=== PATIENT | male | born 1945 | race Caucasian/White ===

== ENCOUNTER 2022-03-03 10:34 | Inpatient (IN) ==
[2022-03-03] MEDS ORDERED: CEFEPIME 2,000 MG/20 ML VIAL IV STA (11:12)
[2022-03-03] MEDS ORDERED: SODIUM CHLORIDE 0.9% 1000ML 1,000 ML IV SCH (11:15)
--- NOTE | 2022-03-03 11:21 | Emergency Department Note ---
Impression & Plan Weakness, Babesiosis, Anemia, Thrombocytopenia, Elevated liver enzymes ED Provider Note NAME: SINDY ADKINS Jr AGE: 76 SEX: M : 1945 ARRIVES VIA: Walk-In INFORMANT: [Patient][family] ED PROVIDER(S): [Rufino Fraga MD] CHIEF COMPLAINT: Respiratory problems HISTORY OF PRESENT ILLNESS: The patient is a 76-year-old male who is visiting the area for 04 March hol. The patient on the , about 10 days ago, began to get tired and have no appetite. He was nauseated with a slight nonproductive cough. He has had some chills and sweats and has been dizzy. There has been some loose stool for about 4 days. The patient went to urgent care and was told that he had a walking pneumonia. He was given doxycycline. He has been on this medication for 3 days. Patient still has no energy and feels short of breath with exertion. He still is running a temperature. He is here with his family, they are concerned that something else is going on. Of note, the patient [place] a lot of time in the [place], he has had tick bites. He states he did take an at home COVID test when he started getting ill, this was negative. REVIEW OF SYSTEMS: See HPI for pertinent positives and negatives. A total of ten systems were reviewed and were otherwise negative. PMHx/PSHx: See Below SOCIAL HISTORY: See Below. PHYSICAL EXAM: GENERAL: Patient is in no acute distress. HEENT: No acute trauma, normocephalic atraumatic, mucous membranes moist, no nasal congestion, no scleral icterus. NECK: No stridor, no adenopathy, no meningismus, trachea is midline. LUNGS: A few scattered crackles heard bilaterally, no wheezing, no respiratory distress. HEART: 2/6 systolic murmur, irregular rhythm, normal rate. ABDOMEN: Soft, nontender, bowel sounds positive, no peritonitis. EXTREMITIES: No cyanosis or edema, full range of motion of all the joints without pain or difficulty, no signs for acute trauma. NEUROLOGIC: Oriented x 3, no acute motor or sensory deficits, no focal weakness. SKIN: No rash, no jaundice, no diaphoresis. DIFFERENTIAL DIAGNOSIS: Sepsis, UTI, pneumonia, Lyme disease, anaplasmosis, babesiosis, COVID-19, influenza, metabolic abnormality, electrolyte abnormalities, cardiac sources, cellulitis, bacteremia, intracerebral event, toxicologic etiology, neurologic event, as well as other pathologies. EMERGENCY DEPARTMENT COURSE/PROCEDURES: ECG: Indication was weakness. The ECG shows what appears to be a sinus rhythm with frequent PACs. The rate is 73. There is no ST elevation, no PVCs. The QTc is 497. No previous ECGs available for comparison. Continuous Cardiac Monitoring: An order was placed for continuous cardiac monitoring. The monitor shows a rate of 82 with sinus rhythm with PACs. MEDICAL DECISION MAKING: There is a lower white blood cell count with a value of 1.3. The patient was anemic with a hemoglobin of 8.1. Platelet count was low at 14. Patient was technically neutropenic by differential. INR was 1.3, mildly elevated. Sodium was low at 130. No renal failure. Lactic acid level was not elevated making se jennifer sepsis less likely. Magnesium was low at 1.6. There were some subtle liver enzyme elevations. Procalcitonin level was elevated. Chest x-ray did not show pneumonia or CHF. ECG shows a sinus rhythm, no obvious acute ischemia. Cardiac enzyme testing x1 was slightly elevated, likely consistent with mismatch although, cardiac injury is a possibility. Of note, the patient did not have any chest pain. Babesiosis smear was positive, anaplasmosis smear was negative. Lyme disease testing was negative. COVID, influenza and RSV test were negative. Patient has babesiosis. This explains his laboratory findings and his complaints. He does require a hospital stay. He was given IV saline, 1.5 L. He was given IV magnesium, IV cefepime. He was given oral atovaquone and IV Zithromax. The patient is aware of his findings, his family is aware. He understands the reason for a hospital stay. I did speak with case management, the on-call hospitalist was consulted. Past Med/Surg History Medical History Afib CAD (coronary artery disease) Cigarette smoker Elevated PSA HLD (hyperlipidemia) HTN (hypertension) Surgical History (Updated 03/03/22 @ 14:16 by ANIL Armenta) H/O heart artery stent Family History (Updated 03/03/22 @ 14:16 by ANIL Armenta) Other Family history non-contributory Social History Smoking Status: Former smoker Tobacco Type: Cigarettes Feels Safe at Home: Yes Home Meds Home Medications Medication Instructions Recorded Confirmed CoQ-10 1 tab PO DAILY 03/03/22 03/03/22 Xarelto 10 mg PO DAILY 03/03/22 03/03/22 aspirin 81 mg PO DAILY 03/03/22 03/03/22 lisinopril 5 mg PO DAILY 03/03/22 03/03/22 omeprazole 20 mg PO DAILY 03/03/22 03/03/22 rosuvastatin 20 mg PO DAILY 03/03/22 03/03/22 Results & Data (ED) Vital Signs Vital Signs - 24 hr 03/03/22 10:42 03/03/22 10:58 03/03/22 11:00 Temperature 36.6 C Temperature Source Skin Pulse Rate 82 74 74 Pulse Rate from SpO2 Sensor 74 59 L Pulse Rhythm Regular Pulse Strength Normal Respiratory Rate 20 15 17 Respiratory Effort / Characteristics Non-Labored Spontaneous Respiratory Depth Normal Respiratory Pattern Regular Blood Pressure 95/62 L Blood Pressure Mean 73 Pulse Oximetry 98 98 98 Oxygen Delivery Method Room Air Room Air Room Air Sepsis Recent Fever Within 48 Hours Yes Sepsis New/Unexplained Change in Mental Status N/A Sepsis Action Taken by Nursing No Action Required 03/03/22 11:10 03/03/22 11:20 03/03/22 11:30 Temperature Temperature Source Pulse Rate 77 70 68 Pulse Rate from SpO2 Sensor 75 70 61 Pulse Rhythm Pulse Strength Respiratory Rate 17 19 22 Respiratory Effort / Characteristics Respiratory Depth Respiratory Pattern Blood Pressure Blood Pressure Mean Pulse Oximetry 97 97 94 Oxygen Delivery Method Room Air Room Air Room Air Sepsis Recent Fever Within 48 Hours Sepsis New/Unexplained Change in Mental Status Sepsis Action Taken by Nursing 03/03/22 11:31 03/03/22 11:40 03/03/22 11:50 Temperature Temperature Source Pulse Rate 65 73 Pulse Rate from SpO2 Sensor 61 69 Pulse Rhythm Pulse Strength Respiratory Rate 22 20 Respiratory Effort / Characteristics Non-Labored Spontaneous Respiratory Depth Respiratory Pattern Blood Pressure Blood Pressure Mean Pulse Oximetry 97 97 Oxygen Delivery Method Room Air Room Air Room Air Sepsis Recent Fever Within 48 Hours Sepsis New/Unexplained Change in Mental Status Sepsis Action Taken by Nursing 03/03/22 12:00 03/03/22 12:10 03/03/22 12:20 Temperature Temperature Source Pulse Rate 71 65 69 Pulse Rate from SpO2 Sensor 71 63 68 Pulse Rhythm Pulse Strength Respiratory Rate 22 16 18 Respiratory Effort / Characteristics Respiratory Depth Respiratory Pattern Blood Pressure Blood Pressure Mean Pulse Oximetry 96 99 98 Oxygen Delivery Method Room Air Room Air Room Air Sepsis Recent Fever Within 48 Hours Sepsis New/Unexplained Change in Mental Status Sepsis Action Taken by Nursing 03/03/22 12:30 03/03/22 12:40 03/03/22 12:50 Temperature Temperature Source Pulse Rate 67 68 76 Pulse Rate from SpO2 Sensor 64 70 68 Pulse Rhythm Pulse Strength Respiratory Rate 16 21 18 Respiratory Effort / Characteristics Respiratory Depth Respiratory Pattern Blood Pressure Blood Pressure Mean Pulse Oximetry 97 94 98 Oxygen Delivery Method Room Air Room Air Room Air Sepsis Recent Fever Within 48 Hours Sepsis New/Unexplained Change in Mental Status Sepsis Action Taken by Nursing 03/03/22 13:00 03/03/22 13:10 03/03/22 13:20 Temperature Temperature Source Pulse Rate 66 66 63 Pulse Rate from SpO2 Sensor 68 64 64 Pulse Rhythm Pulse Strength Respiratory Rate 20 19 15 Respiratory Effort / Characteristics Respiratory Depth Respiratory Pattern Blood Pressure Blood Pressure Mean Pulse Oximetry 99 99 99 Oxygen Delivery Method Room Air Room Air Room Air Sepsis Recent Fever Within 48 Hours Sepsis New/Unexplained Change in Mental Status Sepsis Action Taken by Nursing 03/03/22 13:29 03/03/22 13:30 03/03/22 13:50 Temperature Temperature Source Pulse Rate 71 68 Pulse Rate from SpO2 Sensor 72 Pulse Rhythm Pulse Strength Respiratory Rate 24 17 Respiratory Effort / Characteristics Respiratory Depth Respiratory Pattern Blood Pressure 132/73 116/70 Blood Pressure Mean 92 85 Pulse Oximetry 100 Oxygen Delivery Method Room Air Room Air Room Air Sepsis Recent Fever Within 48 Hours Sepsis New/Unexplained Change in Mental Status Sepsis Action Taken by Nursing 03/03/22 14:00 03/03/22 14:10 03/03/22 14:20 Temperature Temperature Source Pulse Rate 68 63 68 Pulse Rate from SpO2 Sensor 60 65 64 Pulse Rhythm Pulse Strength Respiratory Rate 16 18 16 Respiratory Effort / Characteristics Respiratory Depth Respiratory Pattern Blood Pressure 116/61 Blood Pressure Mean 79 Pulse Oximetry 98 100 99 Oxygen Delivery Method Room Air Room Air Room Air Sepsis Recent Fever Within 48 Hours Sepsis New/Unexplained Change in Mental Status Sepsis Action Taken by Nursing 03/03/22 14:30 03/03/22 14:40 03/03/22 14:59 Temperature Temperature Source Pulse Rate 67 63 113 H Pulse Rate from SpO2 Sensor Pulse Rhythm Pulse Strength Respiratory Rate 14 16 Respiratory Effort / Characteristics Respiratory Depth Respiratory Pattern Blood Pressure 108/56 L Blood Pressure Mean 73 Pulse Oximetry Oxygen Delivery Method Room Air Room Air Room Air Sepsis Recent Fever Within 48 Hours Sepsis New/Unexplained Change in Mental Status Sepsis Action Taken by Nursing 03/03/22 15:00 03/03/22 15:02 03/03/22 15:10 Temperature Temperature Source Pulse Rate 80 80 68 Pulse Rate from SpO2 Sensor Pulse Rhythm Pulse Strength Respiratory Rate 18 16 17 Respiratory Effort / Characteristics Respiratory Depth Respiratory Pattern Blood Pressure 123/69 Blood Pressure Mean 87 Pulse Oximetry Oxygen Delivery Method Room Air Room Air Room Air Sepsis Recent Fever Within 48 Hours Sepsis New/Unexplained Change in Mental Status Sepsis Action Taken by Alf Medications Current Medication List: was personally reviewed by me Laboratory Data Attestation: I reviewed the patient's lab results. Result diagrams: 03/03/22 11:25 03/03/22 11:25 Lab Results 03/03/22 03/03/22 03/03/22 Range/Units 11:25 11:25 11:25 WBC 1.30 L (4.8-10.8) K/uL RBC 2.53 L (4.7-6.1) M/uL Hgb 8.1 L (14.0-18.0) g/dL Hct 23.5 L (42-52) % MCV 92.9 (80-100) fL MCH 32.0 (25-34) pg MCHC 34.5 (32-36) g/dL RDW Std Deviation 50.3 H (36.4-46.3) fL RDW Coeff of Justine 14.7 H (11.5-14.5) % Plt Count 14 L* (130-400) K/uL MPV 12.6 H (7.4-10.4) fL Neutrophils % (Manual) 65.5 % Lymphocytes % (Manual) 27.7 % Monocytes % (Manual) 6.8 % Neutrophils # (Manual) 0.85 L (1.4-6.5) K/uL Total Absolute Neuts 0.85 L* (1.4-6.5) K/uL Lymphocytes # (Manual) 0.36 L (1.2-3.4) K/uL Total Abs Lymphocytes 0.36 L (1.2-3.4) K/uL Monocytes # (Manual) 0.09 L (0.11-0.59) K/uL Platelet Estimate SIGNIFIC DECREASED (Normal) Ovalocytes 1+ Peripher Smr Path Cons ESR (0-20) mm/hr PT 13.9 H (9.0-12.0) Seconds INR 1.3 H (0.9-1.1) APTT 38.1 H (21.0-31.0) Seconds PTT Ratio 1.4 Sodium (136-145) mmol/L Potassium (3.5-5.1) mmol/L Chloride (98-107) mmol/L Carbon Dioxide (21-32) mmol/L Anion Gap (3-11) BUN (6-23) mg/dl Creatinine (0.6-1.4) mg/dl Est Cr Clr Drug Dosing ml/min Est GFR ( Amer) ml/min Est GFR (Non-Af Amer) ml/min BUN/Creatinine Ratio (10-20) Glucose (70-99(Fasting)) mg/dl Lactate (0.4-2.0) mmol/L Calcium (8.5-10.1) mg/dl Magnesium (1.7-2.4) mg/dl Total Bilirubin (0.2-1.0) mg/dl AST (13-39) U/L ALT (7-52) U/L Alkaline Phosphatase (34-104) U/L Lactate Dehydrogenase (86-244) U/L Troponin I High Sens (0-20) pg/ml Total Protein (6.0-8.3) gm/dl Albumin (3.4-5.0) gm/dl Globulin (2.5-4.0) gm/dl Albumin/Globulin Ratio (0.9-2) Procalcitonin (0-0.5) ng/ml Anaplasma Smear Cancelled See Comment Babesia Smear Cancelled See Comment A Lyme Disease IgG Ab (Negative) Lyme Disease IgM Ab (Negative) SARS-CoV-2 (PCR) (Negative) Influenza Type A (PCR) (Neg) Influenza Type B (PCR) (Neg) RSV (RT-PCR) (Neg) 03/03/22 03/03/22 03/03/22 Range/Units 11:25 11:25 11:25 WBC (4.8-10.8) K/uL RBC (4.7-6.1) M/uL Hgb (14.0-18.0) g/dL Hct (42-52) % MCV (80-100) fL MCH (25-34) pg MCHC (32-36) g/dL RDW Std Deviation (36.4-46.3) fL RDW Coeff of Justine (11.5-14.5) % Plt Count (130-400) K/uL MPV (7.4-10.4) fL Neutrophils % (Manual) % Lymphocytes % (Manual) % Monocytes % (Manual) % Neutrophils # (Manual) (1.4-6.5) K/uL Total Absolute Neuts (1.4-6.5) K/uL Lymphocytes # (Manual) (1.2-3.4) K/uL Total Abs Lymphocytes (1.2-3.4) K/uL Monocytes # (Manual) (0.11-0.59) K/uL Platelet Estimate (Normal) Ovalocytes Peripher Smr Path Cons ESR (0-20) mm/hr PT (9.0-12.0) Seconds INR (0.9-1.1) APTT (21.0-31.0) Seconds PTT Ratio Sodium 130 L (136-145) mmol/L Potassium 3.6 (3.5-5.1) mmol/L Chloride 101 (98-107) mmol/L Carbon Dioxide 24 (21-32) mmol/L Anion Gap 5 (3-11) BUN 27 H (6-23) mg/dl Creatinine 1.29 (0.6-1.4) mg/dl Est Cr Clr Drug Dosing 51.1 ml/min Est GFR ( Amer) 62.4 ml/min Est GFR (Non-Af Amer) 53.9 ml/min BUN/Creatinine Ratio 20.9 H (10-20) Glucose 109 H (70-99(Fasting)) mg/dl Lactate 1.0 (0.4-2.0) mmol/L Calcium 8.0 L (8.5-10.1) mg/dl Magnesium 1.6 L (1.7-2.4) mg/dl Total Bilirubin 1.7 H (0.2-1.0) mg/dl AST 56 H (13-39) U/L ALT 23 (7-52) U/L Alkaline Phosphatase 45 (34-104) U/L Lactate Dehydrogenase (86-244) U/L Troponin I High Sens 36.6 H (0-20) pg/ml Total Protein 5.5 L (6.0-8.3) gm/dl Albumin 2.9 L (3.4-5.0) gm/dl Globulin 2.6 (2.5-4.0) gm/dl Albumin/Globulin Ratio 1.1 (0.9-2) Procalcitonin 1.26 H (0-0.5) ng/ml Anaplasma Smear Babesia Smear Lyme Disease IgG Ab Negative (Negative) Lyme Disease IgM Ab Negative (Negative) SARS-CoV-2 (PCR) (Negative) Influenza Type A (PCR) (Neg) Influenza Type B (PCR) (Neg) RSV (RT-PCR) (Neg) 03/03/22 03/03/22 03/03/22 Range/Units 11:41 14:30 14:30 WBC (4.8-10.8) K/uL RBC (4.7-6.1) M/uL Hgb (14.0-18.0) g/dL Hct (42-52) % MCV (80-100) fL MCH (25-34) pg MCHC (32-36) g/dL RDW Std Deviation (36.4-46.3) fL RDW Coeff of Justine (11.5-14.5) % Plt Count (130-400) K/uL MPV (7.4-10.4) fL Neutrophils % (Manual) % Lymphocytes % (Manual) % Monocytes % (Manual) % Neutrophils # (Manual) (1.4-6.5) K/uL Total Absolute Neuts (1.4-6.5) K/uL Lymphocytes # (Manual) (1.2-3.4) K/uL Total Abs Lymphocytes (1.2-3.4) K/uL Monocytes # (Manual) (0.11-0.59) K/uL Platelet Estimate (Normal) Ovalocytes Peripher Smr Path Cons ESR 6 (0-20) mm/hr PT (9.0-12.0) Seconds INR (0.9-1.1) APTT (21.0-31.0) Seconds PTT Ratio Sodium (136-145) mmol/L Potassium (3.5-5.1) mmol/L Chloride (98-107) mmol/L Carbon Dioxide (21-32) mmol/L Anion Gap (3-11) BUN (6-23) mg/dl Creatinine (0.6-1.4) mg/dl Est Cr Clr Drug Dosing ml/min Est GFR ( Amer) ml/min Est GFR (Non-Af Amer) ml/min BUN/Creatinine Ratio (10-20) Glucose (70-99(Fasting)) mg/dl Lactate (0.4-2.0) mmol/L Calcium (8.5-10.1) mg/dl Magnesium (1.7-2.4) mg/dl Total Bilirubin (0.2-1.0) mg/dl AST (13-39) U/L ALT (7-52) U/L Alkaline Phosphatase (34-104) U/L Lactate Dehydrogenase 521 H (86-244) U/L Troponin I High Sens (0-20) pg/ml Total Protein (6.0-8.3) gm/dl Albumin (3.4-5.0) gm/dl Globulin (2.5-4.0) gm/dl Albumin/Globulin Ratio (0.9-2) Procalcitonin (0-0.5) ng/ml Anaplasma Smear Babesia Smear Lyme Disease IgG Ab (Negative) Lyme Disease IgM Ab (Negative) SARS-CoV-2 (PCR) NEGATIVE (Negative) Influenza Type A (PCR) Negative (Neg) Influenza Type B (PCR) Negative (Neg) RSV (RT-PCR) Negative (Neg) Administered Medications Discontinued Medications Atovaquone (Atovaquone 750 Mg/5 Ml Udc) 750 mg PO NOW STA Stop: 03/03/22 12:58 Last Admin: 03/03/22 13:16 Dose: 750 mg Documented by: [id number] Sodium Chloride (Nss 1000ml) 1,000 mls @ 999 mls/hr IV .Q1H1M [id number] Stop: 03/03/22 12:15 Last Infusion: 03/03/22 12:41 Dose: 0 mls/hr Documented by: [id number] Admin: 03/03/22 11:32 Dose: 999 mls/hr Documented by: [id number] Cefepime HCl (Maxipime) 2,000 mg in 20 mls @ 5 mls/min IV NOW STA; Protocol Stop: 03/03/22 11:15 Last Admin: 03/03/22 11:50 Dose: 5 mls/min Documented by: [id number] Magnesium Sulfate/Dextrose (Magnesium Sulfate / D5w) 1 gm in 100 mls @ 100 mls/hr IV NOW STA Stop: 03/03/22 13:41 Last Infusion: 03/03/22 14:29 Dose: 0 mls/hr Documented by: [id number] Admin: 03/03/22 13:16 Dose: 100 mls/hr Documented by: [id number] Sodium Chloride (Nss 1000ml) 500 mls @ 999 mls/hr IV .Q31M ONE Stop: 03/03/22 13:12 Last Infusion: 03/03/22 14:29 Dose: 0 mls/hr Documented by: [id number] Admin: 03/03/22 13:17 Dose: 999 mls/hr Documented by: [id number] Azithromycin 500 mg/ Dextrose 255 mls @ 127.5 mls/hr IV NOW STA Stop: 03/03/22 14:56 Last Infusion: 03/03/22 15:17 Dose: 0 mls/hr Documented by: [id number] Admin: 03/03/22 13:16 Dose: 127.5 mls/hr Documented by: [id number] Imaging Data Radiologist's Impression: Chest X-Ray 03/03/22 11:12 XR chest 1V portable CLINICAL HISTORY: SEPSIS COMPARISON STUDY: No previous studies for comparison. FINDINGS: Lung volumes are normal. There is no pneumothorax or pleural effusion. Several calcified granulomas within the right lung are noted. There are calcified right hilar lymph nodes. There is a possible left atrial occluder device. Moderate cardiomegaly is noted without evidence for pulmonary edema. There is no consolidation to suggest pneumonia. 1.2 cm nodular density projects over the left lower lung. IMPRESSION: 1. No acute cardiopulmonary findings. Mild cardiomegaly. 2. 1.2 cm nodular density which projects over the left lower lung. This could reflect a nipple shadow but is indeterminate. Follow-up PA chest radiograph with nipple markers is recommended. ACT 112: Negative or not required by law. Electronically signed by: Sulaiman Saleh M.D. 03/03/2022 12:40 PM Discharge Plan Visit Data Chief Complaint: Respiratory Problems Stated Complaint: DXD W/WALKING PENUMONIA/103 FEVER ED Provider: Rufino Fraga Discharge Problem: Weakness, Babesiosis, Anemia, Thrombocytopenia, Elevated liver enzymes Patient Disposition: Admitted As Inpatient Condition: Fair Forms Stand Alone Forms: [facility] Prescriptions Prescriptions: No Action aspirin 81 mg PO DAILY RF: 0 lisinopril 5 mg PO DAILY RF: 0 CoQ-10 1 tab PO DAILY RF: 0 Xarelto 10 mg PO DAILY RF: 0 omeprazole 20 mg PO DAILY RF: 0 rosuvastatin 20 mg PO DAILY RF: 0 Referrals Referrals: NICKOLAS LEA [Other]
[2022-03-03 12:02] LABS: INR 1.3 (0.9-1.1); Partial Thromboplastin Ratio 1.4; Partial Thromboplastin Time 38.1 Seconds (21.0-31.0); Prothrombin Time 13.9 Seconds (9.0-12.0)
[2022-03-03 12:24] LABS: Troponin I High Sensitivity 36.6 pg/ml (0-20)
[2022-03-03 12:28] LABS: Albumin Globulin Ratio 1.1 (0.9-2); Albumin Level 2.9 gm/dl (3.4-5.0); BUN Creatinine Ratio 20.9 (10-20); Bilirubin,Total 1.7 mg/dl (0.2-1.0); Creatinine Clr Calc Pharmacy 51.1 ml/min; Est GFR (African American) 62.4 ml/min; Est GFR (Non-African American) 53.9 ml/min; Globulin 2.6 gm/dl (2.5-4.0); Magnesium 1.6 mg/dl (1.7-2.4); Potassium 3.6 mmol/L (3.5-5.1); Total Protein 5.5 gm/dl (6.0-8.3)
--- NOTE | 2022-03-03 12:41 | XRay Report ---
XR chest 1V portable CLINICAL HISTORY: SEPSIS COMPARISON STUDY: No previous studies for comparison. FINDINGS: Lung volumes are normal. There is no pneumothorax or pleural effusion. Several calcified gr anulomas within the right lung are noted. There are calcified right hilar lymph nodes. There is a pos sible left atrial occluder device. Moderate cardiomegaly is noted without evidence for pulmonary jody a. There is no consolidation to suggest pneumonia. 1.2 cm nodular density projects over the left lowe r lung. IMPRESSION: 1. No acute cardiopulmonary findings. Mild cardiomegaly. 2. 1.2 cm nodular density which projects over the left lower lung. This could reflect a nipple shadow but is indeterminate. Follow-up PA chest radiograph with nipple markers is recommended. ACT 112: Negative or not required by law. Electronically signed by: Sulaiman Saleh M.D. 03/03/2022 12:40 PM
[2022-03-03] MEDS ORDERED: SODIUM CHLORIDE 0.9% 1000ML 500 ML IV ONE (12:42)
[2022-03-03] MEDS ORDERED: MAGNESIUM SULFATE / D5W 1 GM/100 ML BAG IV STA (12:42)
[2022-03-03 12:47] LABS: Influenza A virus by PCR Negative (Neg); Influenza B virus by PCR Negative (Neg); RSV by PCR Negative (Neg); SARS CoV2 RNA(COVID-19) InHosp NEGATIVE (Negative)
[2022-03-03 12:48] LABS: Hematocrit (blood only) 23.5 % (42-52); Hemoglobin 8.1 g/dL (14.0-18.0); Mean Corpuscular Hgb Conc 34.5 g/dL (32-36); Mean Corpuscular Volume 92.9 fL (80-100); Mean Platelet Volume 12.6 fL (7.4-10.4); Platelet Count 14 K/uL (130-400); RDW Coefficient of Variation 14.7 % (11.5-14.5); RDW Standard Deviation 50.3 fL (36.4-46.3); Red Blood Count 2.53 M/uL (4.7-6.1)
[2022-03-03 12:49] LABS: ALC (manual) 0.36 K/uL (1.2-3.4); ANC (manual) 0.85 K/uL (1.4-6.5); Lymphocytes # (manual) 0.36 K/uL (1.2-3.4); Lymphocytes % (manual) 27.7 %; Monocytes # (manual) 0.09 K/uL (0.11-0.59); Monocytes % (manual) 6.8 %; Neutrophils # (manual) 0.85 K/uL (1.4-6.5); Neutrophils % (manual) 65.5 %; Ovalocytes 1+; Platelet Estimate SIGNIFIC DECREASED (Normal)
[2022-03-03] MEDS ORDERED: ATOVAQUONE 750 MG/5 ML UDC PO STA (12:57)
[2022-03-03] MEDS ORDERED: AZITHROMYCIN 500 MG in DEXTROSE 5% 250 ML IV STA (12:57)
[2022-03-03 13:15] LABS: Procalcitonin 1.26 ng/ml (0-0.5)
[2022-03-03 13:26] LABS: Lyme Ab IgG w/WB Rflx Negative (Negative); Lyme Ab IgM w/WB Rflx Negative (Negative)
--- NOTE | 2022-03-03 14:10 | History & Physical Report ---
Date of Service March 03, 2022 Assessment & Plan (1) Babesiosis: Plan: Patient with babesiosis- not immunocompromised however undergoing workup for enlarged prostate - moderate to severe disease at this time with pancytopenia - 5% estimated on smear - - Is currently without other evidence of organ failure or involvement - Platelet count at 14, HGB 8.1- will send LDH and ESR - Ultrasound of spleen - PT 13.9, INR 1.3, PTT 38.1- mildly elevated - send fibrinogen and fdp - Leukopenia with neutropenia - Continue with Azithromycin 500mg IV daily until improvement - Hypotensive on arrival but responding to IVF - continue with LR - lactate negative - 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 (2) Pancytopenia: Plan: Likely related to above - no schistocytes reported on smear - follow closely - hold Xarelto - Thrombocytopenia transfuse for declination to 10K or less Daughter/daughter in law- feels he has had low WBC and Platelets before but is unsure- he was evaluated by heme/onc at [facility] - ? mention of CLL at that time - consider reaching out if it would help guide current treatments- DR. Srinivasan [facility] (3) Afib: Plan: Currently in NSR with PACs- s/p watchman - Will hold Xarelto at this time until platelet count improves - Not on rate control agents at home - follow maintain normal lytes and replace intravascular volume (4) HLD (hyperlipidemia): Plan: Continue rosuvastatin (5) CAD (coronary artery disease): Plan: History of stents x3 unsure of location - will hold his asa as above - continue statin - hold coq10 (6) HTN (hypertension): Plan: Continue LIDA as renal function and hemodynamics allow - follow in am (7) Hyponatremia: Plan: Mild at 130 likley hypovolemic hyponatremia - Continue with LR infusion overnight - regular diet (8) Hypomagnesemia: Plan: Replete 4 gm IV mag - mg 1.6 (9) Elevated bilirubin: Plan: As above likely secondary to baesiosis disease - LDH and ESR pending (10) Elevated troponin: Plan: Routinely drawn in the EMD - he is without chest pain or anginal symptoms - likely demand from illness and underlying heart disease - ECG without ST elevation or ST depressions - trend History of Present Illness Primary Care Provider: NICKOLAS LEA 76 YOM with medical history of: CAD (reports 3 stents), HTN, HLD, Enlarged prostate (awaiting MRI with elevated PSA by PCP), previous smoker (quit 50 years ago), AFib (on Xarelto- had Watchman's device placed - reports finished with Xarelto at end of month). Patient is from [facility] Patient comes in today for feeling of fatigue, dyspnea, joint aches, nausea, diarrhea, and fevers greater at night. He endorses that symptoms have been ongoing since about . On the He went to urgent care for the above symptoms and was diagnosed with walking pneumonia and placed on Doxycycline. He is visiting in the area and remained feeling ill so he came in to get checked out. In the EMD the patient had routine labs performed to include HScTNI. He was noted to be pancytopenic, elevated AST, and PCT of 1.26. He also had tick borne labs per formed and positive at this time for babesiosis. Lyme is negative and Anaplasmosis initial smear is negative. He was originally given a dose Cefepime by the EMD provider and once the tick labs returned, he was given Azithromycin 500mg and Atovaquone 750mg IV. Patient states that he has just been feeling more run down fatigued and not eating or drinking much. He endorses being mostly compliant with his medications. COVID test on admission is: NEGATIVE Home Medications Medication Instructions Recorded Confirmed Type CoQ-10 1 tab PO DAILY 03/03/22 03/03/22 History Xarelto 10 mg PO DAILY 03/03/22 03/03/22 History aspirin 81 mg PO DAILY 03/03/22 03/03/22 History lisinopril 5 mg PO DAILY 03/03/22 03/03/22 History omeprazole 20 mg PO DAILY 03/03/22 03/03/22 History rosuvastatin 20 mg PO DAILY 03/03/22 03/03/22 History Past Med/Surg History Medical History (Updated 03/03/22 @ 14:59 by ANIL Armenta) Afib CAD (coronary artery disease) Cigarette smoker Elevated PSA HLD (hyperlipidemia) HTN (hypertension) Surgical History (Updated 03/03/22 @ 14:16 by ANIL Armenta) H/O heart artery stent Family History (Updated 03/03/22 @ 14:16 by ANIL Armenta) Other Family history non-contributory Social History Smoking Status: Former smoker Tobacco Type: Cigarettes Feels Safe at Home: Yes Review of Systems Review of Systems: REVIEW OF SYSTEMS: Constitutional: (+) fever, sweats or chills Eyes: No diplopia, no worsening or blurred vision ENT: normal hearing, no trouble swallowing Respiratory: No cough, sputum, dyspnea at rest or on exertion Cardiovascular: No chest pain, tightness or palpitations Abdomen: (+) nausea, diarrhea, No pain, nausea, vomiting, diarrhea or constipation Musculoskeletal: (+) multiple joint pains, NO calf pain, swelling Neurologic: No weakness, numbness/tingling, or balance problems Psychiatric: No anxiety or depression Skin: No rash or itch Physical Exam Physical Exam: PHYSICAL EXAM: General: awake, alert, fatigued appearin Head: Normocephalic, atraumatic ENT: pale conjunctiva, PERRLA, EOMI, no pharyngeal exudate, mucous membranes, dry, no sore throat and no lymphadenopathy Neuro: AAO x 3, speech clear and appropriate, strength intact bilaterally 5/5, sensation intact and equal all extremities and dermatomes, no pronator drift Chest: equal rise and fall of the chest, no accessory muscle use, no heaves or thrills, Clear to auscultation, on room air, Cardiac: irregular rate and rhythm, telemetry reviewed- no ectopy, skin warm dry, cap refill <3 seconds, peripheral pulses +2 no JVD, no murmur, no edema GI: NABS x 4 quadrants, soft, nontender to palpation, no rebound, guarding or tenderness : Spontaneously voiding, no pain, no CVA tenderness, Extremities: Normal inspection, no peripheral edema or erythema, calfs nontender to palpation Psych: Normal mood and affect Skin: no rash or erythema Results & Data Results & Data ([facility]) Vital Signs (Past 12 Hours) Vital Signs Temp Pulse Resp BP Pulse Ox 03/03/22 13:30 68 17 116/70 03/03/22 13:29 71 24 132/73 100 07/03/22 13:20 63 15 99 03/03/22 13:10 66 19 99 03/03/22 13:00 66 20 99 03/03/22 12:50 76 18 98 03/03/22 12:40 68 21 94 03/03/22 12:30 67 16 97 03/03/22 12:20 69 18 98 03/03/22 12:10 65 16 99 03/03/22 12:00 71 22 96 03/03/22 11:50 73 20 97 03/03/22 11:40 65 22 97 03/03/22 11:30 68 22 94 03/03/22 11:20 70 19 97 03/03/22 11:10 77 17 97 03/03/22 11:00 74 17 98 03/03/22 10:58 74 15 98 03/03/22 10:42 36.6 C 82 20 95/62 L 98 Laboratory Results Abnormal lab results 03/03/22 03/03/22 03/03/22 Range/Units 11:25 11:25 11:25 WBC 1.30 L (4.8-10.8) K/uL RBC 2.53 L (4.7-6.1) M/uL Hgb 8.1 L (14.0-18.0) g/dL Hct 23.5 L (42-52) % RDW Std Deviation 50.3 H (36.4-46.3) fL RDW Coeff of Justine 14.7 H (11.5-14.5) % Plt Count 14 L* (130-400) K/uL MPV 12.6 H (7.4-10.4) fL Neutrophils # (Manual) 0.85 L (1.4-6.5) K/uL Total Absolute Neuts 0.85 L* (1.4-6.5) K/uL Lymphocytes # (Manual) 0.36 L (1.2-3.4) K/uL Total Abs Lymphocytes 0.36 L (1.2-3.4) K/uL Monocytes # (Manual) 0.09 L (0.11-0.59) K/uL PT 13.9 H (9.0-12.0) Seconds INR 1.3 H (0.9-1.1) APTT 38.1 H (21.0-31.0) Seconds Sodium 130 L (136-145) mmol/L BUN 27 H (6-23) mg/dl BUN/Creatinine Ratio 20.9 H (10-20) Glucose 109 H (70-99(Fasting)) mg/dl Calcium 8.0 L (8.5-10.1) mg/dl Magnesium 1.6 L (1.7-2.4) mg/dl Total Bilirubin 1.7 H (0.2-1.0) mg/dl AST 56 H (13-39) U/L Troponin I High Sens 36.6 H (0-20) pg/ml Total Protein 5.5 L (6.0-8.3) gm/dl Albumin 2.9 L (3.4-5.0) gm/dl Procalcitonin (0-0.5) ng/ml Babesia Smear See Comment A 03/03/22 Range/Units 11:25 WBC (4.8-10.8) K/uL RBC (4.7-6.1) M/uL Hgb (14.0-18.0) g/dL Hct (42-52) % RDW Std Deviation (36.4-46.3) fL RDW Coeff of Justine (11.5-14.5) % Plt Count (130-400) K/uL MPV (7.4-10.4) fL Neutrophils # (Manual) (1.4-6.5) K/uL Total Absolute Neuts (1.4-6.5) K/uL Lymphocytes # (Manual) (1.2-3.4) K/uL Total Abs Lymphocytes (1.2-3.4) K/uL Monocytes # (Manual) (0.11-0.59) K/uL PT (9.0-12.0) Seconds INR (0.9-1.1) APTT (21.0-31.0) Seconds Sodium (136-145) mmol/L BUN (6-23) mg/dl BUN/Creatinine Ratio (10-20) Glucose (70-99(Fasting)) mg/dl Calcium (8.5-10.1) mg/dl Magnesium (1.7-2.4) mg/dl Total Bilirubin (0.2-1.0) mg/dl AST (13-39) U/L Troponin I High Sens (0-20) pg/ml Total Protein (6.0-8.3) gm/dl Albumin (3.4-5.0) gm/dl Procalcitonin 1.26 H (0-0.5) ng/ml Babesia Smear Diagnostic Findings Chest X-Ray 03/03/22 11:12 XR chest 1V portable CLINICAL HISTORY: SEPSIS COMPARISON STUDY: No previous studies for comparison. FINDINGS: Lung volumes are normal. There is no pneumothorax or pleural effusion. Several calcified granulomas within the right lung are noted. There are calcifie d right hilar lymph nodes. There is a possible left atrial occluder device. Moderate cardiomegaly is noted without evidence for pulmonary edema. There is no consolidation to suggest pneumonia. 1.2 cm nodular density projects over the left lower lung. IMPRESSION: 1. No acute cardiopulmonary findings. Mild cardiomegaly. 2. 1.2 cm nodular density which projects over the left lower lung. This could reflect a nipple shadow but is indeterminate. Follow-up PA chest radiograph with nipple markers is recommended. ACT 112: Negative or not required by law. Electronically signed by: Sulaiman Saleh M.D. 03/03/2022 12:40 PM Medications Administered Azithromycin 500 mg/ Dextrose 255 mls @ 127.5 mls/hr IV NOW STA Stop: 03/03/22 14:56 Last Admin: 03/03/22 13:16 Dose: 127.5 mls/hr Documented by: [id number] Discontinued Medications Atovaquone (Atovaquone 750 Mg/5 Ml Udc) 750 mg PO NOW STA Stop: 03/03/22 12:58 Last Admin: 03/03/22 13:16 Dose: 750 mg Documented by: [id number] Sodium Chloride (Nss 1000ml) 1,000 mls @ 999 mls/hr IV .Q1H1M KASSANDRA Stop: 03/03/22 12:15 Last Infusion: 03/03/22 12:41 Dose: 0 mls/hr Documented by: [id number] Admin: 03/03/22 11:32 Dose: 999 mls/hr Documented by: [id number] Cefepime HCl (Maxipime) 2,000 mg in 20 mls @ 5 mls/min IV NOW STA; Protocol Stop: 03/03/22 11:15 Last Admin: 03/03/22 11:50 Dose: 5 mls/min Documented by: [id number] Magnesium Sulfate/Dextrose (Magnesium Sulfate / D5w) 1 gm in 100 mls @ 100 mls/hr IV NOW STA Stop: 03/03/22 13:41 Last Admin: 03/03/22 13:16 Dose: 100 mls/hr Documented by: [id number] Sodium Chloride (Nss 1000ml) 500 mls @ 999 mls/hr IV .Q31M ONE Stop: 03/03/22 13:12 Last Admin: 03/03/22 13:17 Dose: 999 mls/hr Documented by: [id number] ECG Additional Comments: Sinus rhythm with Premature atrial complexes Nonspecific T wave abnormality Prolonged QT Abnormal ECG No previous ECGs available Code Status & VTE Plan Code Status CODE STATUS: FULL VTE: SCDS, Hold Xarelto with thrombocytopenia VTE Prophylaxis Plan VTE Prophylaxis will be ordered: Yes Supervising Physician Co-Signing Physician Notes I supervised ANIL Alexis on this admission. I interviewed and examined the patient independently of him. The plan is as written in his note except for any following changes/exceptions: None 76yo M w/ hx of CAD, afib, and HTN who presents with babesiosis. The [place] and was bitten by a tick a few weeks ago. Around February 23, he had an urgent care visit and was diagnosed with "walking pneumonia" and started on doxycycline. No tick testing at this time. Now with worsening symptoms and found to have grossly abnormal labs. The patient's smear was positive for inclusion bodies, indicating babesiosis. Lyme was negative and smear was negative for anaplasmosis. Will continue azithromycin and atovaquone which were started in the ER. Continue doxy for now until anaplasma PCR is back as co-infection is common and Anaplasma smear is very insensitive (~10%). Will get full coagulation panel to ensure no DIC given low platelets and anemia. I personally reviewed the peripheral smear in the histology lab and did not note any schistocytes, so DIC at this point seems unlikely. PG Care Time/CCT Total # of Minutes Spent Total Time Spent with Patient: Total time spent is greater than 50% in coordination of care (as documented) at patient's floor/unit and/or counseling patient: Coding Level of Care Code 91981 Initial Inpt Care Lvl 3 Diagnoses Babesiosis B60.00 Pancytopenia D61.818 Afib I48.91 HLD (hyperlipidemia) E78.5 CAD (coronary artery disease) I25.10 HTN (hypertension) I10 Hypomagnesemia E83.42 Elevated bilirubin R17 Elevated troponin R77.8 Hyponatremia E87.1
--- NOTE | 2022-03-03 17:16 | Ultrasound Report ---
SPLEEN ULTRASOUND HISTORY: babesiosis- evaluate spleen size. COMPARISON: None. TECHNIQUE: Sonography of the spleen was performed. FINDINGS: Moderate splenomegaly is noted. Spleen measures 16.2 cm in maximal dimension. No splenic le ren is noted. There is no left hydronephrosis. Trace left perinephric fluid is present. IMPRESSION: Moderate splenomegaly. ACT 112: Negative or not required by law. Electronically signed by: Sulaiman Saleh M.D. 03/03/2022 5:15 PM
[2022-03-03 18:07] LABS: Fibrinogen 450 mg/dl (184-400)
[2022-03-03] MEDS ORDERED: GLUCOSE 40% GEL 15 GM TUBE PO PRN (19:19)
[2022-03-03] MEDS ORDERED: POTASSIUM CHLORIDE CRTAB 20 MEQ TABCR PO STA (19:19)
[2022-03-03] MEDS ORDERED: ONDANSETRON INJ 2 MG/ML 2 ML VIAL IV PRN (19:19)
[2022-03-03] MEDS ORDERED: GLUCAGON FOR INJ 1 MG VIAL SQ PRN (19:19)
[2022-03-03] MEDS ORDERED: CARBOHYDRATES FOR HYPOGLYCEMIA PO PRN (19:19)
[2022-03-03] MEDS ORDERED: GLUCOSE 10 TABS/TUBE PO PRN (19:19)
[2022-03-03] MEDS ORDERED: DEXTROSE 50% 50 ML SYRINGE IV PRN (19:19)
[2022-03-03] MEDS ORDERED: Patient's ALLERGY Info needs ENTERED SCH (19:30)
[2022-03-03 20:14] LABS: Fibrinogen 383 mg/dl (184-400)
[2022-03-03] MEDS: LACTATED RINGER'S 1,000 ML IV SCH (20:17)
[2022-03-03] MEDS: MAGNESIUM SULFATE / D5W 1 GM/100 ML BAG IV SCH ×3 (20:17→23:59)
[2022-03-03] MEDS: DOXYCYCLINE HYCLATE 100 MG in DEXTROSE 5% 100 ML IV SCH (20:17)
--- NOTE | 2022-03-03 23:03 | Communication Note ---
Date of Service: March 03, 2022 Notified of temp 38.4C. No new orders. Blood cultures from afternoon pending. Being treated for babesiosis.
[2022-03-03] MEDS: ACETAMINOPHEN 325 MG TAB PO PRN (23:04)
[2022-03-04] MEDS: ATOVAQUONE 750 MG/5 ML UDC PO SCH ×3 (00:57→20:50)
[2022-03-04] MEDS: LACTATED RINGER'S 1,000 ML IV SCH ×2 (06:21→16:53)
[2022-03-04 07:32] LABS: Hematocrit (blood only) 22.1 % (42-52); Hemoglobin 7.4 g/dL (14.0-18.0); Mean Corpuscular Hemoglobin 31.1 pg (25-34); Mean Corpuscular Hgb Conc 33.5 g/dL (32-36); Mean Corpuscular Volume 92.9 fL (80-100); Mean Platelet Volume 11.4 fL (7.4-10.4); Platelet Count 13 K/uL (130-400); RDW Coefficient of Variation 15.5 % (11.5-14.5); RDW Standard Deviation 52.6 fL (36.4-46.3); Red Blood Count 2.38 M/uL (4.7-6.1); White Blood Count 1.17 K/uL (4.8-10.8)
[2022-03-04 07:36] LABS: INR 1.1 (0.9-1.1); Partial Thromboplastin Ratio 1.2; Partial Thromboplastin Time 33.3 Seconds (21.0-31.0); Prothrombin Time 11.9 Seconds (9.0-12.0)
[2022-03-04 07:52] LABS: Platelet Estimate SIGNIFIC DECREASED (Normal); RBC Morphology Unremarkable
[2022-03-04 07:54] LABS: ALC (manual) 0.59 K/uL (1.2-3.4); ANC (manual) 0.53 K/uL (1.4-6.5); Eosinophils # (manual) 0.01 K/uL (0-0.5); Eosinophils % (manual) 0.9 %; Lymphocytes # (manual) 0.59 K/uL (1.2-3.4); Lymphocytes % (manual) 50.4 %; Monocytes # (manual) 0.04 K/uL (0.11-0.59); Monocytes % (manual) 3.5 %; Neutrophils # (manual) 0.53 K/uL (1.4-6.5); Neutrophils % (manual) 45.2 %
[2022-03-04] MEDS: ROSUVASTATIN CALCIUM 20 MG TAB PO SCH (08:06)
[2022-03-04] MEDS: PANTOprazole 40 MG TAB PO SCH (08:06)
[2022-03-04] MEDS: AZITHROMYCIN 500 MG in DEXTROSE 5% 250 ML IV SCH (08:17)
[2022-03-04] MEDS: DOXYCYCLINE HYCLATE 100 MG in DEXTROSE 5% 100 ML IV SCH (08:18)
[2022-03-04 08:25] LABS: Albumin Level 2.6 gm/dl (3.4-5.0); Bilirubin Direct 0.4 mg/dl (0-0.2); Bilirubin,Total 1.4 mg/dl (0.2-1.0); Calcium 7.4 mg/dl (8.5-10.1); Creatinine Clr Calc Pharmacy 69.4 ml/min; Est GFR (African American) 90.4 ml/min; Magnesium 2.2 mg/dl (1.7-2.4); Potassium 4.3 mmol/L (3.5-5.1); Total Protein 4.7 gm/dl (6.0-8.3)
[2022-03-04 08:58] LABS: Troponin I High Sensitivity 25.1 pg/ml (0-20)
[2022-03-04] MEDS ORDERED: lisinopril 5 MG TAB PO SCH (09:00)
--- NOTE | 2022-03-04 09:16 | XRay Report ---
XR chest 2V PA/lateral HISTORY: 76 years-old Male evaluate density noted on previous- follow-up study in a patient with nod ular opacities COMPARISON: Chest radiograph 03/03/2022 TECHNIQUE: PA and lateral views of the chest FINDINGS: The cardiomediastinal and hilar silhouettes are within normal limits. Scattered pulmonary calcified g ranulomata are noted with hyperinflation. Left atrial occlusion device is noted with coronary arteria l stent. Nipple markers are present with the previously questioned left basilar nodule correlating wi th the nipple shadow. There is no pneumothorax, pleural effusion, airspace consolidation or overt pul monary edema. Degenerative changes of the shoulders and spine. IMPRESSION: 1. No acute process. 2. The previously questioned left basilar nodular focus correlates with a nipple shadow. ACT 112: Negative or not required by law. The above report was generated using voice recognition software. It may contain grammatical, syntax o r spelling errors. Electronically signed by: Michael Licona M.D. 03/04/2022 9:15 AM
--- NOTE | 2022-03-04 10:47 | Discharge Summary ---
Date of Service March 04, 2022 Admission HPI Per Admitting Provider 76 YOM with medical history of: CAD (reports 3 stents), HTN, HLD, Enlarged prostate (awaiting MRI with elevated PSA by PCP), previous smoker (quit 50 years ago), AFib (on Xarelto- had Watchman's device placed - reports finished with Xarelto at end of month). Patient is from [facility] Patient comes in today for feeling of fatigue, dyspnea, joint aches, nausea, diarrhea, and fevers greater at night. He endorses that symptoms have been ongoing since about [id number]. On the He went to urgent care for the above symptoms and was diagnosed with walking pneumonia and placed on Doxycycline. He is visiting in the area and remained feeling ill so he came in to get checked out. In the EMD the patient had routine labs performed to include HScTNI. He was noted to be pancytopenic, elevated AST, and PCT of 1.26. He also had tick borne labs performed and positive at this time for babesiosis. Lyme is negative and Anaplasmosis initial smear is negative. He was originally given a dose Cefepime by the EMD provider and once the tick labs returned, he was given Azithromycin 500mg and Atovaquone 750mg IV. Patient states that he has just been feeling more run down fatigued and not eating or drinking much. He endorses being mostly compliant with his medications. COVID test on admission is: NEGATIVE Principal Diagnosis Severe babesiosis Discharge Exam No acute distress Abdomen benign Chest clear Soft systolic murmur Discharge Data Allergies Allergy/AdvReac Type Severity Reaction Status Date / Time No Known Allergies Allergy Verified 03/03/22 19:46 Consultations 03/03/22 13:11 ED Decision to Admit Stat Ordered Studies 03/03/22 15:51 US abdomen limited Routine Hospital Course (1) Babesiosis: Lower hemoglobin, lower platelets, higher LDH; needs consideration of exchange transfusion; transfer to higher level of facility (2) Pancytopenia: Some question of remote cytopenia but nothing to suggest CLL at present-details pending but in my view does not change need for tertiary care transfer; in fact, could consider immunocompromised (3) Afib: Currently in NSR with PACs- s/p watchman - Will hold Xarelto at this time until platelet count improves - Not on rate control agents at home - follow maintain normal lytes and replace intravascular volume (4) HLD (hyperlipidemia): Continue rosuvastatin (5) CAD (coronary artery disease): History of stents x3 unsure of location - will hold his asa as above - continue statin - hold coq10 (6) HTN (hypertension): Continue LIDA as renal function and hemodynamics allow - (7) Hyponatremia: Improved, follow (8) Hypomagnesemia: Replete as needed (9) Elevated bilirubin: Likely secondary to hemolysis, follow (10) Elevated troponin: Routinely drawn in the EMD - he is without chest pain or anginal symptoms - likely demand from illness and underlying heart disease - ECG without ST elevation or ST depressions - trend Total Time Total Time Spent Total Time Spent (In Minutes): 40 Discharge Plan Discharge Items Patient Disposition: Transfer Acute Care Hospital Reason For Visit: BABESIOSIS,ELECTROLYTE DERRANGEMENT Discharge Diagnosis: Severe babesiosis Condition on Discharge: Fair Activity: As commented below Activity Comment: Per accepting facility Non-emergency contact: Primary Care Provider Call non-emergency contact if: your symptoms worsen Follow-up/Referrals: NICKOLAS LEA [Other] Diet: Heart Healthy Addtl Attending Provider Instructions: None Pending Studies at Discharge: Yes Stand-Alone Forms: [employer] Skilled Items Patient informed of condition?: Yes DNR: No Discharge Level of Care: Other Communicable Disease: No Discharge Prognosis: Other Lines: Peripheral IV Urinary Catheter: No Medications and DC Order Prescriptions: New atovaquone [Mepron] 750 mg/5 mL Suspension 750 mg PO Q12H Qty: 210 RF: 0 acetaminophen 325 mg Tablet 650 mg PO Q4H PRN (Reason: pain) Qty: 20 RF: 0 azithromycin [Zithromax] 500 mg recon soln 500 mg IV DAILY 2 Days RF: 0 Continued lisinopril 5 mg PO DAILY RF: 0 omeprazole 20 mg PO DAILY RF: 0 rosuvastatin 20 mg PO DAILY RF: 0 Discontinued aspirin 81 mg PO DAILY RF: 0 CoQ-10 1 tab PO DAILY RF: 0 Xarelto 10 mg PO DAILY RF: 0 Discharge Orders: Discharge Order (Routine); Ordered 03/04/22 Ordered By: Prashanth Good Admission Data Admit Date/Time: 03/03/22 13:52 Attending Provider: Prashanth Good Admit Provider: Huber,Domingo J. Other Providers: Domingo Huber Coding Level of Care Code D/C DAY MANAGEMENT >30 MINS Diagnoses Babesiosis B60.00 Pancytopenia D61.818 Afib I48.91 HLD (hyperlipidemia) E78.5 CAD (coronary artery disease) I25.10 HTN (hypertension) I10 Hyponatremia E87.1 Hypomagnesemia E83.42 Elevated bilirubin R17 Elevated troponin R77.8
[2022-03-04] MEDS: ACETAMINOPHEN 325 MG TAB PO PRN (15:44)
[2022-03-04] MEDS: FOLIC ACID 1 MG TAB PO SCH (18:22)
[2022-03-04 19:43] LABS: Hemoglobin 7.5 g/dL (14.0-18.0); Mean Corpuscular Hemoglobin 31.5 pg (25-34); Mean Corpuscular Hgb Conc 34.1 g/dL (32-36); Mean Corpuscular Volume 92.4 fL (80-100); Mean Platelet Volume 12.2 fL (7.4-10.4); Platelet Count 15 K/uL (130-400); RDW Coefficient of Variation 15.4 % (11.5-14.5); RDW Standard Deviation 52.5 fL (36.4-46.3); Red Blood Count 2.38 M/uL (4.7-6.1); White Blood Count 1.04 K/uL (4.8-10.8)
[2022-03-04 20:03] LABS: ALC (manual) 0.54 K/uL (1.2-3.4); ANC (manual) 0.44 K/uL (1.4-6.5); Basophils # (manual) 0.02 K/uL (0-0.2); Fibrinogen 375 mg/dl (184-400); Lymphocytes # (manual) 0.54 K/uL (1.2-3.4); Monocytes # (manual) 0.04 K/uL (0.11-0.59); Neutrophils # (manual) 0.44 K/uL (1.4-6.5); RBC Morphology Unremarkable
[2022-03-04 20:05] LABS: Platelet Estimate SIGNIFIC DECREASED (Normal)
--- NOTE | 2022-03-04 20:11 | Communication Note ---
Date of Service: March 04, 2022 Reviewed 7pm cbc. Stable from AM cbc. Patient is awaiting transfer to [place] per day team. Per nursing, waiting for transport; will likely be tomorrow rory drew.
[2022-03-05] MEDS: LACTATED RINGER'S 1,000 ML IV SCH (03:17)
[2022-03-05 07:34] LABS: INR 1.1 (0.9-1.1); Partial Thromboplastin Ratio 1.2; Partial Thromboplastin Time 31.8 Seconds (21.0-31.0); Platelet Count 14 K/uL (130-400); Prothrombin Time 11.4 Seconds (9.0-12.0)
[2022-03-05 07:39] LABS: Albumin Globulin Ratio 1.1 (0.9-2); Albumin Level 2.4 gm/dl (3.4-5.0); BUN Creatinine Ratio 22.8 (10-20); Bilirubin Direct 0.2 mg/dl (0-0.2); Bilirubin,Total 1.2 mg/dl (0.2-1.0); Calcium 7.3 mg/dl (8.5-10.1); Creatinine Clr Calc Pharmacy 71.6 ml/min; Est GFR (Non-African American) 81.1 ml/min; Globulin 2.1 gm/dl (2.5-4.0); Magnesium 1.7 mg/dl (1.7-2.4); Phosphorus 2.6 mg/dl (2.5-4.9); Potassium 4.2 mmol/L (3.5-5.1); Total Protein 4.5 gm/dl (6.0-8.3)
[2022-03-05 08:12] LABS: ALC (manual) 0.55 K/uL (1.2-3.4); ANC (manual) 0.28 K/uL (1.4-6.5); Echinocytes 1+; Lymphocytes # (manual) 0.55 K/uL (1.2-3.4); Lymphocytes % (manual) 61.7 %; Monocytes # (manual) 0.06 K/uL (0.11-0.59); Monocytes % (manual) 6.4 %; Neutrophils # (manual) 0.28 K/uL (1.4-6.5); Neutrophils % (manual) 31.9 %; Platelet Estimate SIGNIFIC DECREASED (Normal)
[2022-03-05 08:14] LABS: Hematocrit (blood only) 19.1 % (42-52); Hemoglobin 6.5 g/dL (14.0-18.0); Mean Corpuscular Hemoglobin 31.9 pg (25-34); Mean Corpuscular Volume 93.6 fL (80-100); Mean Platelet Volume 12.4 fL (7.4-10.4); RDW Coefficient of Variation 15.3 % (11.5-14.5); RDW Standard Deviation 52.5 fL (36.4-46.3); Red Blood Count 2.04 M/uL (4.7-6.1); White Blood Count 0.89 K/uL (4.8-10.8)
[2022-03-05] MEDS: PANTOprazole 40 MG TAB PO SCH (08:14)
[2022-03-05] MEDS: ROSUVASTATIN CALCIUM 20 MG TAB PO SCH (08:14)
[2022-03-05] MEDS: ATOVAQUONE 750 MG/5 ML UDC PO SCH (08:14)
[2022-03-05] MEDS: FOLIC ACID 1 MG TAB PO SCH (08:14)
[2022-03-05] MEDS: AZITHROMYCIN 500 MG in DEXTROSE 5% 250 ML IV SCH (08:50)
--- NOTE | 2022-03-05 09:41 | Electrocardiogram Report ---
Test Reason : Blood Pressure : / mmHG Vent. Rate : 073 BPM Atrial Rate : 073 BPM P-R Int : 144 ms QRS Dur : 092 ms QT Int : 452 ms P-R-T Axes : 035 047 041 degrees QTc Int : 497 ms Sinus rhythm with Premature atrial complexes Nonspecific T wave abnormality Prolonged QT Abnormal ECG No previous ECGs available Confirmed by Delfino Moody ([id number]) on 03/05/2022 9:41:17 AM Referred By: REFERRED SELF Confirmed By:Delfino Moody
--- NOTE | 2022-03-05 10:57 | Hospitalist Progress Note ---
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 -treat underlying process; worth hematology input but getting transferred so hold off (3) Afib: Plan: Currently in NSR with PACs- s/p watchman - Will hold Xarelto at this time until platelet count improves - Not on rate control agents at home - follow maintain normal lytes and replace intravascular volume (4) HLD (hyperlipidemia): Plan: Continue rosuvastatin (5) CAD (coronary artery disease): Plan: History of stents x3 unsure of location - will hold his asa as above - continue statin - hold coq10 (6) HTN (hypertension): Plan: BP on low side, all agents stopped (7) Hyponatremia: Plan: more or less stable, follow (8) Elevated bilirubin: Plan: Likely secondary to hemolysis, follow Also noted abnormal liver enzymesfollow at present (9) Elevated troponin: Plan: If at all type II event, no action at present; at some point can consider echo Admission and Anticipated Discharge Date Admission Date: March 03, 2022 Subjective Follow-up of febrile illness, general malaiseno new symptoms as such Physical Exam Physical Exam: Constitutional and general: No acute distress, looks biologic age Head and face: No puffiness, atraumatic Eyes: No scleral icterus, extraocular movements normal Neck: Supple, no JVD Musculoskeletal: No acute joint swelling, no bony abnormalities Skin/dermatologic/integument: No rash, no purpura Hematologic and lymphatic: pallor +, no petechia Gastrointestinal/abdomen: Nondistended, soft, nonacute Neurologic: Cranial nerves intact, nonfocal Psychiatry: Awake, alert, pleasant, communicative Cardiovascular: Heart rhythm regular, no rub, SM+, no gallop Respiratory: Chest movements equal, no use of accessory muscles, no adventitious sounds Extremities: No edema, no cyanosis R Results & Data Results & Data ([facility]) Vital Signs (Past 12 Hours) Vital Signs Temp Pulse Pulse Resp BP BP Pulse Ox 03/05/22 10:18 36.7 C 63 17 128/72 98 03/05/22 10:03 36.7 C 63 16 115/67 03/05/22 09:46 36.7 C 64 16 104/56 L 98 03/05/22 06:26 37.2 C 70 16 121/64 97 03/05/22 03:40 36.5 C 58 L 16 122/73 97 03/04/22 23:14 36.3 C L 60 18 127/73 98 Laboratory Results Laboratory Results - last 24 hr 03/03/22 03/04/22 03/04/22 19:48 18:53 18:53 WBC 1.04 L RBC 2.38 L Hgb 7.5 L Hct 22.0 L MCV 92.4 MCH 31.5 MCHC 34.1 RDW Std Deviation 52.5 H RDW Coeff of Justine 15.4 H Plt Count 15 L* MPV 12.2 H Neutrophils % (Manual) 42.0 Band Neutrophils % 0.0 Lymphocytes % (Manual) 52.0 Prolymphocyte % 0.0 Reactive Lymphs % (Man) 0.0 Monocytes % (Manual) 4.0 Basophils % (Manual) 2.0 Plasma Cell % (Manual) 0.0 Neutrophils # (Manual) 0.44 L Total Absolute Neuts 0.44 L* Lymphocytes # (Manual) 0.54 L Total Abs Lymphocytes 0.54 L Monocytes # (Manual) 0.04 L Basophils # (Manual) 0.02 Large Granular Lymphs 0.0 Platelet Estimate SIGNIFIC DECREASED RBC Morphology Unremarkable Echinocytes PT INR APTT PTT Ratio Fibrinogen 375 Sodium Potassium Chloride Carbon Dioxide Anion Gap BUN Creatinine Est Cr Clr Drug Dosing Est GFR ( Amer) Est GFR (Non-Af Amer) BUN/Creatinine Ratio Glucose Fasting Glucose Calcium Phosphorus Magnesium Total Bilirubin Direct Bilirubin AST ALT Alkaline Phosphatase Total Protein Albumin Globulin Albumin/Globulin Ratio Blood Type AB Positive Blood Type Recheck Antibody Screen NEGATIVE Crossmatch See Detail 03/04/22 03/05/22 03/05/22 18:53 06:46 06:46 WBC RBC Hgb Hct MCV MCH MCHC RDW Std Deviation RDW Coeff of Justine Plt Count MPV Neutrophils % (Manual) Band Neutrophils % Lymphocytes % (Manual) Prolymphocyte % Reactive Lymphs % (Man) Monocytes % (Manual) Basophils % (Manual) Plasma Cell % (Manual) Neutrophils # (Manual) Total Absolute Neuts Lymphocytes # (Manual) Total Abs Lymphocytes Monocytes # (Manual) Basophils # (Manual) Large Granular Lymphs Platelet Estimate RBC Morphology Echinocytes PT 11.4 INR 1.1 APTT 31.8 H PTT Ratio 1.2 Fibrinogen Sodium 133 L Potassium 4.2 Chloride 106 Carbon Dioxide 24 Anion Gap 3 BUN 21 Creatinine 0.92 Est Cr Clr Drug Dosing 71.6 Est GFR ( Amer) 94.0 Est GFR (Non-Af Amer) 81.1 BUN/Creatinine Ratio 22.8 H Glucose 97 Fasting Glucose 97 Calcium 7.3 L Phosphorus 2.6 Magnesium 1.7 Total Bilirubin 1.2 H Direct Bilirubin 0.2 AST 145 H ALT 72 H Alkaline Phosphatase 37 Total Protein 4.5 L Albumin 2.4 L Globulin 2.1 L Albumin/Globulin Ratio 1.1 Blood Type Blood Type Recheck AB Positive Antibody Screen Crossmatch 03/05/22 06:46 WBC 0.89 L* RBC 2.04 L Hgb 6.5 L* Hct 19.1 L* MCV 93.6 MCH 31.9 MCHC 34.0 RDW Std Deviation 52.5 H RDW Coeff of Justine 15.3 H Plt Count 14 L* MPV 12.4 H Neutrophils % (Manual) 31.9 Band Neutrophils % 0.0 Lymphocytes % (Manual) 61.7 Prolymphocyte % 0.0 Reactive Lymphs % (Man) 0.0 Monocytes % (Manual) 6.4 Basophils % (Manual) Plasma Cell % (Manual) 0.0 Neutrophils # (Manual) 0.28 L Total Absolute Neuts 0.28 L* Lymphocytes # (Manual) 0.55 L Total Abs Lymphocytes 0.55 L Monocytes # (Manual) 0.06 L Basophils # (Manual) Large Granular Lymphs 0.0 Platelet Estimate SIGNIFIC DECREASED RBC Morphology Echinocytes 1+ PT INR APTT PTT Ratio Fibrinogen Sodium Potassium Chloride Carbon Dioxide Anion Gap BUN Creatinine Est Cr Clr Drug Dosing Est GFR ( Amer) Est GFR (Non-Af Amer) BUN/Creatinine Ratio Glucose Fasting Glucose Calcium Phosphorus Magnesium Total Bilirubin Direct Bilirubin AST ALT Alkaline Phosphatase Total Protein Albumin Globulin Albumin/Globulin Ratio Blood Type Blood Type Recheck Antibody Screen Crossmatch PG Care Time/CCT Total # of Minutes Spent Total Time Spent with Patient: Total time spent is greater than 50% in coordination of care (as documented) at patient's floor/unit and/or counseling patient: Coding Level of Care Code 37800 Subseq Hosp Care Lvl 2 Diagnoses Babesiosis B60.00 Pancytopenia D61.818 Afib I48.91 HLD (hyperlipidemia) E78.5 CAD (coronary artery disease) I25.10 HTN (hypertension) I10 Hyponatremia E87.1 Elevated bilirubin R17 Elevated troponin R77.8
[2022-03-06 22:06] LABS: Babesia microti DNA Detected (Not Detected)
== END 2022-03-05 11:45 | disposition short-term general hospital (02) | DRG 868 ==
LOC: ED 10:34 → EDINP 13:52 → SUATTDRO 13:52 → 2W 18:21